=== PATIENT | male | born 1970 | race Caucasian/White ===

== ENCOUNTER 2023-12-29 19:00 | Emergency (ER) | payer SELFPAY ==
[2023-12-29 19:00] VITALS: BMI 31.6
[2023-12-29 19:04] VITALS: BP 148/90
[2023-12-29 19:06] VITALS: BP 148/90
[2023-12-29] MEDS: MOTRIN 600 MG PO (20:32)
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
[2023-12-29] MEDS: FLEXERIL 10 MG PO (22:48)
== END 2023-12-29 23:01 | disposition home or self-care (01) ==
LOC: EMR 19:00
PROVIDERS: EMERGENCY PHYSICIAN Emergency Medicine; FAMILY PHYSICIAN Internal Medicine
DX: S16.1XXA Strain of muscle, fascia and tendon at neck level, initial encounter (principal); S70.12XA Contusion of left thigh, initial encounter; S60.419A Abrasion of unspecified finger, initial encounter; Y92.410 Unspecified street and highway as the place of occurrence of the external cause; I10 Essential (primary) hypertension
CPT/HCPCS: 99283; 72050; 73000; 73630; 93005